=== PATIENT | male | born 1960 | race African-American/Black ===

== ENCOUNTER 2018-09-30 16:36 | Emergency (ER) | payer OTHER ==
--- NOTE | 2018-09-30 16:50 | PDOC ---
Rapid Medical Evaluation Time Seen by Provider: 09/30/18 16:47 Medical Evaluation: 09/30/18 16:47 I performed a brief in-person evaluation. Chief complaint: One week of cough, dyspnea, chest pain with coughing, palpitations, dizziness. Pertinent physical exam findings: V/s unremarkable, clear lungs, RRR S1/S2. I have ordered the following: EKG, CXR. Patient will proceed to the ED for further evaluation. Discharge Disposition - Diagnosis Cough - Referrals - Patient Instructions - Post Discharge Activity
[2018-09-30 16:51] VITALS: BP 122/73; PULSE 73; TEMP 98.5; BMI 31.2
--- NOTE | 2018-09-30 17:35 | PDOC ---
History of Present Illness - General Chief Complaint: Cold Symptoms Stated Complaint: COLD Time Seen by Provider: 09/30/18 16:47 History Source: Patient Exam Limitations: No Limitations - History of Present Illness Initial Comments: 09/30/18 17:31 HISTORY OF PRESENT ILLNESS: This is a 58-year-old male denies medical history presents emergency department for evaluation of sore throat, cough, frontal headache, myalgias for the past 4 days. Patient reports she's had symptoms on and off for the past 3 weeks most recent episode present for 4 days. Denies any nausea or vomiting. Patient reports intermittent chest pain which occurs only while coughing. Patient reports is moist cough is productive with a yellow/ green sputum produced. No recent travel or sick contacts. PAST MEDICAL HISTORY: Denies past medical history SURGICAL HISTORY: Denies ALLERGIES: No known drug allergies REVIEW OF SYSTEMS General/Constitutional: +fever. Denies weakness, weight change. HEENT: Denies change in vision. Denies ear pain or discharge. +sore throat. Cardiovascular: Denies chest pain or shortness of breath. Respiratory: Moist productive cough. Denies wheezing, or hemoptysis. Gastrointestinal: Denies nausea, vomiting, diarrhea or constipation. Denies rectal bleeding. Genitourinary: Denies dysuria, frequency, or change in urination. Musculoskeletal: +myalgias. Denies neck or back pain. Skin and breasts: Denies rash or easy bruising. Neurologic: Denies headache, vertigo, loss of consciousness, or loss of sensation. Psychiatric: Denies depression or anxiety. Endocrine: Denies increased thirst. Denies abnormal weight change. Hematologic/Lymphatic: Denies anemia, easy bleeding, or history of blood clots. Allergic/Immunologic: Denies hives or skin allergy. Denies latex allergy. PHYSICAL EXAM General Appearance: Well-appearing, appropriately dressed. No apparent distress , no intoxication. HEENT: EOMI, PERRLA, normal voice, TMs retracted bilaterally. No conjunctival pallor. No photophobia, scleral icterus. Oropharynx erythematous without lesions or exudate. Cobblestoning noted in the posterior. No nasal discharge present. Neck: Supple. Trachea midline. No tenderness, rigidity, carotid bruit, stridor , or thyromegaly. Nontender anterior cervical lymphadenopathy present. Respiratory/Chest: Lungs CTAB. No shortness of breath, chest tenderness, respiratory distress, accessory muscle use. No crackles, rales, rhonchi, stridor , wheezing, dullness Cardiovascular: RRR. S1, S2. No JVD, murmur, bradycardia, tachycardia. Vascular Pulses: Dorsalis-Pedis (R): 2+, Dorsalis-Pedis (L): 2+ Gastrointestinal/Abdominal: Normal bowel sounds. Abdomen soft, non-distended. No tenderness or rebound tenderness. No organomegaly, pulsatile mass, guarding, hernia, hepatomegaly, splenomegaly. Musculoskeletal/Extremities: Normal inspection. FROM of all extremities, normal capillary refill. Pelvis Stable. No CVA tenderness. No tenderness to extremities, pedal edema, swelling, erythema or deformity. Integumentary: Appropriate color, dry, warm. No cyanosis, erythema, jaundice or rash Neurologic: manager social services II-XII intact. Fully oriented, alert. Appropriate mood/affect. Motor strength 5/5. No appreciable EOM palsy, facial droop or sensory deficit. Past History - Past Medical History Allergies/Adverse Reactions: Allergies Allergy/AdvReac Type Severity Reaction Status Date / Time No Known Allergies Allergy Verified 09/30/18 16:47 Home Medications: Ambulatory Orders Benzonatate [Tessalon Pearls -] 200 mg PO TID #42 cap 09/30/18 COPD: No - Suicide/Smoking/Psychosocial Hx Smoking History: Never smoked *Physical Exam - Vital Signs Last Vital Signs Temp Pulse Resp BP Pulse Ox 98.5 F 73 20 122/73 98 09/30/18 16:48 09/30/18 16:48 09/30/18 16:48 09/30/18 16:48 09/30/18 16:48 Moderate Sedation - Procedure Monitoring Vital Signs: Procedure Monitoring Vital Signs Temperature 98.5 F 09/30/18 16:48 Pulse Rate 73 09/30/18 16:48 Respiratory Rate 20 09/30/18 16:48 Blood Pressure 122/73 09/30/18 16:48 O2 Sat by Pulse Oximetry (%) 98 09/30/18 16:48 Medical Decision Making - Medical Decision Making 09/30/18 17:32 A/P: 58-year-old male with 4 days of influenza-like illness Chest x-ray performed at [facility] medical evaluation as read by me: Angles clear. Cardiac silhouette is within normal limits. No focal consolidations or infiltrates are present. EKG sinus rhythm with rate of 71. Normal intervals present. No ischemic changes noted. Physical exam is consistent with viral infection. As patient is outside 72 hour window I will not test or treat for influenza. Supportive treatment is been discussed with the patient and his daughter who verbalized understanding of discharge instructions I discussed the physical exam findings, ancillary test results and final diagnoses with the patient. I answered all of the patient's questions. The patient was satisfied with the care received and felt comfortable with the discharge plan and treatment plan. The patient will call their primary care physician within 24 hours to arrange follow-up and will return to the Emergency Department with any new, persistent or worsening symptoms. *DC/Admit/Observation/Transfer Diagnosis at time of Disposition: URI (upper respiratory infection) Qualifiers: URI type: acute pharyngitis Pharyngitis/tonsillitis etiology: unspecified etiology Qualified Code(s): J02.9 - Acute pharyngitis, unspecified - Discharge Dispostion Disposition: HOME Condition at time of disposition: Stable Decision to Admit order: No - Prescriptions Prescriptions: Benzonatate [Tessalon Pearls -] 200 mg PO TID #42 cap - Referrals Referrals: James Haynes MD [Primary Care Provider] - - Patient Instructions Printed Discharge Instructions: DI for Viral Upper Respiratory Infection -- Adult Additional Instructions: Rest, drink lots of fluids: Teas, water, soups, Pedialyte Saltwater gargles Steamy showers/seem to face break up mucus Avoid contact with others until fevers and cough resolved Lots of handwashing and good hygiene Continue [id number] medications for symptomatic relief Tylenol or Motrin for fever and pain Followup with private physician in one to 2 days as needed Return to emergency department for worsened symptoms, fevers, dehydration El descanso, beber muchos lquidos: ts, agua, sopas, Pedialyte grgaras de agua salada Duchas Steamy / parecen enfrentar aflojar la mucosidad Evite el contacto con otras personas hasta que la fiebre y la tos resueltos Un montn de lavado de [place] y la higiene Continuar [id number] medicamentos para el alivio sintomtico Tylenol o Motrin para la fiebre y el dolor Followup con el mdico privado en elias o 2 wade segn sea necesario Regresar a urgencias por sntomas empeoraron, fiebres, deshidratacin Print Language: WELSH - Post Discharge Activity
--- NOTE | 2018-10-01 13:07 | EKG ---
Test Reason : Blood Pressure : / mmHG Vent. Rate : 071 BPM Atrial Rate : 071 BPM P-R Int : 156 ms QRS Dur : 090 ms QT Int : 366 ms P-R-T Axes : 034 030 030 degrees QTc Int : 397 ms NORMAL SINUS RHYTHM NORMAL ECG NO PREVIOUS ECGS AVAILABLE Confirmed by TRACI SONG MD ([id number]) on 10/01/2018 1:07:04 PM Referred By: Confirmed By:TRACI SONG MD
== END 2018-09-30 17:38 | disposition home or self-care (01) ==
LOC: JERFT 16:36
DX: J06.9 Acute upper respiratory infection, unspecified (principal); J02.9 Acute pharyngitis, unspecified
CPT/HCPCS: 71046-TC-FY; 93005; 93010; 99281-25

== ENCOUNTER 2019-05-23 05:41 | Emergency (ER) | payer OTHER ==
[2019-05-23 06:40] VITALS: BP 129/68; PULSE 72; TEMP 98.4; BMI 34.2
[2019-05-23] MEDS ORDERED: LIDOCAINE HCL 2% (20ML MULTI-DOSE VIAL) NR ONE (07:22)
--- NOTE | 2019-05-23 07:32 | PDOC ---
History of Present Illness - General History Source: Patient Exam Limitations: Clinical Condition - History of Present Illness Initial Comments: 05/23/19 08:17 Patient with no significant past medical history presented with complaint of swelling and pain with redness to left ring finger for 3 days which has been worsening. Patient has a ring on the ring finger which is causing worsening swelling radiating up left hand. Denies numbness or tingling sensation, fever or chills. Denies any other symptoms Timing/Duration: reports: other (3 days) <Deon Bundy - Last Filed: 05/23/19 08:46> <Kenny Forbes - Last Filed: 05/23/19 15:58> - General Chief Complaint: Edema Stated Complaint: SWELLING,FINGER Time Seen by Provider: 05/23/19 07:17 Past History - Past Medical History COPD: No - Psycho Social/Smoking Cessation Hx Smoking History: Never smoked Hx Alcohol Use: Yes Drug/Substance Use Hx: No <Deon Bundy - Last Filed: 05/23/19 08:46> <Kenny Forbes - Last Filed: 05/23/19 15:58> - Past Medical History Allergies/Adverse Reactions: Allergies Allergy/AdvReac Type Severity Reaction Status Date / Time No Known Allergies Allergy Verified 05/23/19 06:38 Home Medications: Ambulatory Orders Benzonatate [Tessalon Pearls -] 200 mg PO TID #42 cap 09/30/18 Amox-Tr/K Cl [Augmentin - 250Mg Tablet] 1 tab PO BID #14 tablet 05/23/19 Ibuprofen 800 mg PO Q8H PRN #20 tablet 05/23/19 Review of Systems - Review of Systems Able to Perform ROS?: Yes Is the patient limited [place] proficient: No Constitutional: No: Fever, Malaise, Weakness HEENTM: No: Symptoms Reported Respiratory: No: Symptoms reported Cardiac (ROS): No: Symptoms Reported ABD/GI: No: Symptoms Reported Musculoskeletal: Yes: Symptoms Reported, See HPI, Joint Swelling (left ring finger), Muscle Pain (left ring finger swelling and pain) Integumentary: Yes: Symptoms Reported, See HPI, Erythema (left ring finger), Other (swelling of left ring finger) Neurological: No: Numbness, Paresthesia, Tingling All Other Systems: Reviewed and Negative <Deon Bundy - Last Filed: 05/23/19 08:46> *Physical Exam - Vital Signs Last Vital Signs Temp Pulse Resp BP Pulse Ox 98.4 F 72 19 129/68 98 05/23/19 06:33 05/23/19 06:33 05/23/19 06:33 05/23/19 06:33 05/23/19 06:33 - Physical Exam Comments: 05/23/19 08:20 GENERAL: Well developed, well nourished. Awake and alert. No acute distress. PULMONARY: No evidence of respiratory distress. MUSCULOSKELETAL :significant for moderate swelling to whole left ring finger with increased erythema to finger of left ring finger. Normal sensory sensation and normal muscle strength to left ring finger. No bony deformities SKIN: Warm and dry. Normal capillary refill. Moderate swelling to whole left ring finger. No bruising or ecchymosis. NEUROLOGICAL: Alert, awake, appropriate. No motor deficits in the lower extremities. Gait is normal without ataxia. PSYCHIATRIC: Cooperative. Good eye contact. Appropriate mood and affect. General Appearance: Yes: Nourished, Appropriately Dressed. No: Apparent Distress <Deon Bundy - Last Filed: 05/23/19 08:46> - Vital Signs Last Vital Signs Temp Pulse Resp BP Pulse Ox 98.4 F 72 19 129/68 98 05/23/19 06:33 05/23/19 06:33 05/23/19 06:33 05/23/19 06:33 05/23/19 06:33 <Kenny Forbes - Last Filed: 05/23/19 15:58> Medical Decision Making - Medical Decision Making 05/23/19 08:18 Patient with no significant past medical history presented with complaint of swelling and pain with redness to left ring finger for 3 days which has been worsening. Patient has a ring on the ring finger which is causing worsening swelling radiating up left hand. Denies numbness or tingling sensation, fever or chills. Denies any other symptoms Exam significant for moderate swelling to whole left ring finger with increased erythema to finger of left ring finger. Normal sensory sensation and normal muscle strength to left ring finger. Ring cut with a ring cutter. Patient tolerated procedure well. Patient stable for discharge on Augmentin antibiotics for possible infection and Motrin as needed for pain with hand specialist follow-up. Plan discussed with patient patient agrees with plan. Patient stable for discharge <Deon Bundy - Last Filed: 05/23/19 08:46> - Medical Decision Making 05/23/19 15:58 I reviewed the case of the mid-level practitioner and was available for consultation while in the emergency department <Kenny Forbes - Last Filed: 05/23/19 15:58> Discharge - Discharge Information Problems reviewed: Yes - Admission No <Deon Bundy - Last Filed: 05/23/19 08:46> <AndreiKenny - Last Filed: 05/23/19 15:58> - Discharge Information Clinical Impression/Diagnosis: Swelling of left ring finger Condition: Stable Disposition: HOME - Additional Discharge Information Prescriptions: Amox-Tr/K Cl [Augmentin - 250Mg Tablet] 1 tab PO BID #14 tablet Ibuprofen 800 mg PO Q8H PRN #20 tablet PRN Reason: pain - Follow up/Referral Referrals: James Haynes MD [Primary Care Provider] - Lázaro Molina MD [Staff Physician] - - Patient Discharge Instructions Additional Instructions: Take medication as prescribed. Apply warm compress to finger 2-3 times a day as needed for swelling. Follow-up with referred hand specialist if symptoms persist for more than 4 days. - Post Discharge Activity Work/Back to School Note: Back to Work
== END 2019-05-23 08:52 | disposition home or self-care (01) ==
LOC: JER 05:41
DX: S60.445A External constriction of left ring finger, initial encounter (principal); W49.04XA Ring or other jewelry causing external constriction, initial encounter; Y93.89 Activity, other specified; Y92.038 Other place in apartment as the place of occurrence of the external cause; Y99.8 Other external cause status
CPT/HCPCS: 99282-25

== ENCOUNTER 2019-05-26 23:19 | Emergency (ER) | payer OTHER ==
[2019-05-27 00:30] VITALS: BP 120/70; PULSE 71; TEMP 98.3; BMI 34.2
--- NOTE | 2019-05-27 02:09 | PDOC ---
History of Present Illness - General Chief Complaint: Edema Stated Complaint: FINGER SWELLING Time Seen by Provider: 05/27/19 00:56 History Source: Patient, Old Records Exam Limitations: No Limitations - History of Present Illness Initial Comments: 05/27/19 02:05 HISTORY OF PRESENT ILLNESS: Is a 58-year-old male otherwise healthy presents to the emergency department for evaluation of worsening swelling to left ring finger. 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 He scratch the itch and then noted his finger swelled up on Wednesday. Patient was seen in this emergency department and had a ring removed and was discharged home on Augmentin 250 mg. Patient was seen by his primary doctor on 05/26 was sent for an x-ray of his finger and had dose of antibiotics changed to 875 mg of Augmentin. Patient is taken 2 doses of the antibiotic was concerned that symptoms have been improved. Patient is right- hand dominant. No recent travel or sick contacts. PAST MEDICAL HISTORY: Denies past medical history SURGICAL HISTORY: Denies ALLERGIES: No known drug allergies REVIEW OF SYSTEMS General/Constitutional: Denies fever or chills. Denies weakness, weight change. HEENT: Denies change in vision. Denies ear pain or discharge. Denies sore throat. Cardiovascular: Denies chest pain or shortness of breath. Respiratory: Denies cough, wheezing, or hemoptysis. Gastrointestinal: Denies nausea, vomiting, diarrhea or constipation. Denies rectal bleeding. Genitourinary: Denies dysuria, frequency, or change in urination. Musculoskeletal: See HPI Skin and breasts: Denies rash or easy bruising. Neurologic: Denies headache, vertigo, loss of consciousness, or loss of sensation. Psychiatric: Denies depression or anxiety. Endocrine: Denies increased thirst. Denies abnormal weight change. Hematologic/Lymphatic: Denies anemia, easy bleeding, or history of blood clots. Allergic/Immunologic: Denies hives or skin allergy. Denies latex allergy. PHYSICAL EXAM General Appearance: Well-appearing, appropriately dressed. No apparent distress , no intoxication. Lymphatic: No adenopathy, tenderness. Musculoskeletal/Extremities: Circumferential swelling to the left fourth digit from the MCP to the DIP. Full range of motion noted. Significant swelling present. Area is erythematous with slight drainage noted to the palmar aspect of the finger. Capillary refill less than 2 seconds. Full sensation noted distal to erythema and swelling. No lymphangitis present. Swelling is contained to the fourth digit of the left hand. Integumentary: Appropriate color, dry, warm. No cyanosis, erythema, jaundice or rash Past History - Past Medical History Allergies/Adverse Reactions: Allergies Allergy/AdvReac Type Severity Reaction Status Date / Time No Known Allergies Allergy Verified 05/27/19 00:28 Home Medications: Ambulatory Orders Ibuprofen 800 mg PO Q8H PRN #20 tablet 05/23/19 COPD: No - Psycho Social/Smoking Cessation Hx Smoking History: Unknown if ever smoked Have you smoked in the past 12 months: No Information on smoking cessation initiated: No Hx Alcohol Use: No Drug/Substance Use Hx: No *Physical Exam - Vital Signs Last Vital Signs Temp Pulse Resp BP Pulse Ox 98.3 F 71 20 120/70 98 05/27/19 00:28 05/27/19 00:28 05/27/19 00:28 05/27/19 00:28 05/27/19 00:28 Medical Decision Making - Medical Decision Making 05/27/19 02:02 A/P: 58-year-old male with cellulitis of the left ring finger X-ray performed 05/26 as outpatient-loss of bone density, no sign of fracture or subluxation. There is swelling. Foreign body or soft tissue air is not seen. Correlation recommended. As patient has full range of motion is neurovascularly intact with capillary refill less than 2 seconds believe there is a low likelihood of cellulitis. Patient reports mild pain at 4/10. Patient is refusing pain medication at this time. Referral for hand surgeon. Discharge home to continue antibiotics. Strict return precautions provided. 05/27/19 02:09 Discharge - Discharge Information Problems reviewed: Yes Clinical Impression/Diagnosis: Cellulitis of finger of left hand Condition: Fair Disposition: HOME - Admission No - Follow up/Referral Referrals: James Haynes MD [Primary Care Provider] - Ez Philip MD [Staff Physician] - - Patient Discharge Instructions Additional Instructions: Take Augmentin as previously prescribed Finish all antibiotics even if you feel better. Apply warm compresses to your finger as needed. Return to emergency department for any worsening pain, drainage, hearing loss, or any other concerns. You have been given referral for hand surgeon. Call to schedule appointment for reevaluation. Thank you very much for choosing us to provide your emergent health care needs. [place] Augmentin segn lo prescrito anteriormente Termina todos los antibiticos incluso si te sientes mejor. Aplique compresas calientes en el dedo segn sea necesario. Regrese al departamento de emergencias para cualquier empeoramiento del dolor, drenaje, prdida de audicin o cualquier otra preocupacin. Se le romo dado referencia para cirujano de mano. Llame para programar lesley kimberly para la reevaluacin. Muchas jovita por elegirnos para proporcionar leslie necesidades de atencin mdica emergentes. - Post Discharge Activity Work/Back to School Note: Back to Work
--- NOTE | 2019-05-27 02:40 | PDOC ---
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 He was seen by PMD on 05/26, xray was performed and the Augmentin dose was adjusted Pt noted that his left ring finger continued to be swollen, painful, limited range of motion No systemic signs of illness Pt seen by Midlevel Provider under my direct supervision Pt interviewed and examined I agree with plan as outlined by Midlevel Provider Pt will need hand specialist consultation Pt should continue abx for cellulitis 05/27/19 02:40 05/27/19 02:48 Discharge - Discharge Information Problems reviewed: Yes Clinical Impression/Diagnosis: Cellulitis of finger of left hand Condition: Fair Disposition: HOME - Follow up/Referral Referrals: James Haynes MD [Primary Care Provider] - Ez Philip MD [Staff Physician] - - Patient Discharge Instructions Additional Instructions: Take Augmentin as previously prescribed Finish all antibiotics even if you feel better. Apply warm compresses to your finger as needed. Return to emergency department for any worsening pain, drainage, hearing loss, or any other concerns. You have been given referral for hand surgeon. Call to schedule appointment for reevaluation. Thank you very much for choosing us to provide your emergent health care needs. [place] Augmentin segn lo prescrito anteriormente Termina todos los antibiticos incluso si te sientes mejor. Aplique compresas calientes en el dedo segn sea necesario. Regrese al departamento de emergencias para cualquier empeoramiento del dolor, drenaje, prdida de audicin o cualquier otra preocupacin. Se le romo dado referencia para cirujano de mano. Llame para programar lesley kimberly para la reevaluacin. Muchas jovita por elegirnos para proporcionar leslie necesidades de atencin mdica emergentes. - Post Discharge Activity Work/Back to School Note: Back to Work
== END 2019-05-27 02:15 | disposition home or self-care (01) ==
LOC: JER 23:19
DX: L03.012 Cellulitis of left finger (principal)
CPT/HCPCS: 99282-25

== ENCOUNTER 2019-10-17 10:49 | Day surgery (SDC) | payer OTHER ==
[2019-10-16 15:04] VITALS: BMI 32.8
[2019-10-17 12:11] VITALS: TEMP 98.2
[2019-10-17 12:13] VITALS: PULSE 61
[2019-10-17 12:14] VITALS: BP 125/67
--- NOTE | 2019-10-18 17:15 | PATH ---
Surgical Pathology Report Patient Name: TERESA LEONARD [facility]. Rec. #: [id number] /Age/Gender: 1960 (Age: 59) / M Account: [id number] Location: [facility]-ENDOSCOPY Taken: 10/17/2019 Received: 10/17/2019 Reported: 10/18/2019 Physicians: Salvador Allan D.O. Specimen(s) Received A: CECAL POLYP B: DESCENDING COLON POLYP Clinical History Screening colonoscopy Postoperative diagnosis: Colon polyps, diverticulosis Final Diagnosis A. CECAL POLYP, BIOPSY: HYPERPLASTIC POLYP. B. DESCENDING COLON, POLYP, BIOPSY: TUBULAR ADENOMA. Electronically Signed Nazia Jackson M.D. Gross Description A. Received in formalin, labeled "biopsy cecal polyp" is a page, irregular portion of soft tissue measuring 0.4 cm. in greatest dimension. The specimen is submitted in toto in one cassette. B. Received in formalin, labeled "biopsy descending colon polyp" are 2 page, irregular portions of soft tissue measuring 0.1 and 0.3 cm. in greatest dimension. The specimens are submitted in toto in one cassette. DL/10/17/2019 saudi10/17/2019
== END 2019-10-17 12:50 | disposition home or self-care (01) ==
LOC: JASU-ENDO 10:49
PROVIDERS: ATTEND Internal Medicine Gastroenterology
PROC: 0DBM8ZX Excision of Descending Colon, Via Natural or Artificial Opening Endoscopic, Diagnostic (ICD-10-PCS; 2019-10-17)
PROC: 0DBH8ZX Excision of Cecum, Via Natural or Artificial Opening Endoscopic, Diagnostic (ICD-10-PCS; principal; 2019-10-17 10:00)
DX: Z12.11 Encounter for screening for malignant neoplasm of colon (principal); D12.0 Benign neoplasm of cecum; D12.4 Benign neoplasm of descending colon; K57.30 Diverticulosis of large intestine without perforation or abscess without bleeding; K64.8 Other hemorrhoids; K62.89 Other specified diseases of anus and rectum
CPT/HCPCS: 88305-TC

== ENCOUNTER 2023-03-06 00:24 | Emergency (ER) | payer OTHER ==
[2023-03-06 00:37] VITALS: BP 127/77; PULSE 66; RESP 20; TEMP 98.1; BMI 32.6
[2023-03-06] MEDS ORDERED: IBUPROFEN 600 MG TABLET (FP) PO ONE ×2 (01:33→01:42)
[2023-03-06 02:21] LABS: BASO % 0.5 % (0-2.0); HEMATOCRIT 44.1 % (35.4-49); HEMOGLOBIN 14.6 GM/dL (11.7-16.9); LYMPH % 23.3 % (8-40); MCH 29.2 pg (25.7-33.7); MCHC 33.2 g/dl (32.0-35.9); MEAN CELL VOLUME 87.9 fl (80-96); MEAN PLT VOLUME 7.8 fl (7.5-11.1); MONO % 9.1 % (3.8-10.2); NEUT % 64.1 % (42.8-82.8); PLATELET COUNT 321 10^3/uL (134-434); RBC 5.02 M/mm3 (4.00-5.60); WHITE BLOOD COUNT 9.1 K/mm3 (4.0-10.0)
[2023-03-06 02:57] LABS: POTASSIUM 4.3 mmol/L (3.5-5.1)
[2023-03-06 02:59] LABS: CALCIUM 8.5 mg/dL (8.5-10.1)
[2023-03-06 03:00] LABS: BLOOD UREA NITROGEN 14.6 mg/dL (7-18)
[2023-03-06 03:02] LABS: CREATININE 0.9 mg/dL (0.55-1.3)
[2023-03-06 03:04] LABS: BILIRUBIN,TOTAL 0.3 mg/dL (0.2-1); TOT PROT 7.3 g/dl (6.4-8.2)
== END 2023-03-06 03:53 | disposition home or self-care (01) ==
LOC: JER 00:24
DX: R22.1 Localized swelling, mass and lump, neck (principal); R07.0 Pain in throat; M54.2 Cervicalgia
CPT/HCPCS: 36415; 80053; 85025; 87070; 87651; 99283-25